=== PATIENT | male | born 2000 | race Caucasian/White ===

== ENCOUNTER 2022-04-25 10:17 | Emergency (ER) | payer OTHER, BC ==
[~2022-04-25] VITALS: Ht 182.9 cm; Wt 120.8 kg
[~2022-04-25 10:17] MED LIST: NORCO 5-325 TA1 EACH PO; SINGULAIR10 MG PO
== END 2022-04-25 11:11 | disposition home or self-care (01) ==
LOC: ED 10:17
DX: S05.32XA Ocular laceration without prolapse or loss of intraocular tissue, left eye, initial encounter (principal); J45.909 Unspecified asthma, uncomplicated; W22.8XXA Striking against or struck by other objects, initial encounter; Z23 Encounter for immunization
CPT/HCPCS: 90471; 90714; 99282-25; A9270